=== PATIENT | male | born 1930 | race Caucasian/White ===

== ENCOUNTER → 2018-11-20 | Outpatient (CLI) | payer MEDICARE | LOC: RAD 11:31 | DX: R60.9 Edema, unspecified (principal) | CPT/HCPCS: 93971 ==

== ENCOUNTER → 2020-03-23 | Day surgery (SDC) | payer MEDICARE, OTHER ==
[2020-03-19 12:42] LABS: BASOPHILS % 0.4 % (0.0-1.0); HEMATOCRIT 44.2 % (38.2-49.6); HEMOGLOBIN 13.7 g/dL (14.0-18.0); LYMPHOCYTES # (AUTO) 1.7 (1.0-3.2); LYMPHOCYTES % 31.9 % (18.0-39.1); MEAN CORPUSCULAR VOLUME 90.4 fL (81-99); MONOCYTES # (AUTO) 1.3 (0.2-0.8); MONOCYTES % 23.7 % (4.4-11.3); NEUTROPHILS # (AUTO) 2.2 (2.1-6.9); NEUTROPHILS % 42.3 % (38.7-80.0); PLATELET COUNT 132 x10e3/uL (140-360); RED BLOOD COUNT 4.89 x10e6/uL (4.3-5.7)
[~2020-03-23] MED LIST: CENTRUM ADULTS1 EACH; LEVOTHYROXINE100 MCG; LIDOCAINE HCL 2% LOCAL INJ 5 ML SDV VIAL INJ ONE; PANTOPRAZOLE 40 MG 10ML VIAL ONE; PROPOFOL IV EMULSION 10 MG/ML 20 ML VIAL ONE; SODIUM CHLORIDE 0.9% 50ML 50 ML ONE; SUPER B WITH V1 EACH
[2020-03-23 08:50] VITALS: BP 133/79
--- NOTE | 2020-03-23 08:58 | Operative Report ---
DATE OF PROCEDURE: 03/23/2020 SURGEON: Fredis James MD PROCEDURE: EGD with esophageal dilatation over a wire and biopsies. INDICATIONS FOR EGD: Dysphagia to solids. MEDICATIONS: The patient was done under MAC, please see anesthesiologist's note. PROCEDURE IN DETAIL: With the patient in the left lateral decubitus position, a flexible fiberoptic Olympus gastroscope was introduced into the oropharynx under direct visualization and with gentle persistent pressure, we were able to advance the scope into the cervical esophagus. No discernible obvious stricture was noted. The mucosa overlying the distal esophagus revealed some patchy areas of erythema. There was some prominent esophageal veins versus grade 1 esophageal varices were noted. An approximately 5 mm sessile lesion, distal esophagus was biopsied. There was some minute tongues of velvety red mucosa were noted to extend proximally from the GE junction and biopsies were obtained to rule out Escobar. The scope was then advanced with ease into the stomach traversing a small sliding hiatal hernia. Mucosa overlying the antrum and the body revealed some patchy erythema and low-grade edema, and biopsies were obtained and sent to stain for H. pylori. Pylorus was of normal contour and shape, was intubated with ease and the scope was advanced all the way to the second portion of the duodenum. A small periampullary diverticulum was noted. The duodenal bulb appeared to be grossly within normal limits. The scope was then withdrawn back into the stomach and retroflexed, and previously described hiatal hernia was also noted in the retroflexed position. The fundus appeared to be within normal limits. The stricture? involving the upper esophageal sphincter was then dilated to size 17 Savary over a wire. The scope was subsequently withdrawn and the patient tolerated the procedure well. IMPRESSION: 1. 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 2. Prominent esophageal veins? grade 1 esophageal varices. We will check hepatic panel. 3. Distal esophagitis, mild. 4. Approximately 5 mm sessile lesion, distal esophagus, biopsied. 5. Rule out Escobar esophagus. 6. Small sliding hiatal hernia. 7. Gastritis, biopsied, biopsies sent to stain for Helicobacter pylori. 8. Small periampullary diverticulum. PLAN: Follow up histology. Initiate Protonix 40 mg one p.o. q.a.m. before meals. Check hepatic panel. If dysphagia persists, we will need a CT scan of the neck and possibly a modified barium swallow. Fredis James MD [facility] – [place] /[id number] cc: Adalid James MD
== END | disposition home or self-care (01) ==
LOC: ENDO 06:00
PROVIDERS: ATTEND Internal Medicine Gastroenterology
DX: K21.00 Gastro-esophageal reflux disease with esophagitis, without bleeding (principal); K29.70 Gastritis, unspecified, without bleeding; K22.8 Other specified diseases of esophagus; K44.9 Diaphragmatic hernia without obstruction or gangrene; K57.10 Diverticulosis of small intestine without perforation or abscess without bleeding; K59.09 Other constipation; I10 Essential (primary) hypertension; Z01.810 Encounter for preprocedural cardiovascular examination; Z01.812 Encounter for preprocedural laboratory examination; Z11.59 Encounter for screening for other viral diseases; Z68.30 Body mass index [BMI] 30.0-30.9, adult
CPT/HCPCS: 36415; 43239; 43248; 85025; 88305; 88312; 93005; C9113; J2001; J2704; U0002; 43450

== ENCOUNTER → 2020-03-27 | Outpatient (CLI) | payer MEDICARE, OTHER ==
[~2020-03-27] MED LIST changes: -LIDOCAINE HCL 2% LOCAL INJ 5 ML SDV VIAL INJ ONE; -PANTOPRAZOLE 40 MG 10ML VIAL ONE; -PROPOFOL IV EMULSION 10 MG/ML 20 ML VIAL ONE; -SODIUM CHLORIDE 0.9% 50ML 50 ML ONE
== END | disposition home or self-care (01) ==
LOC: RAD 10:48
DX: R60.0 Localized edema (principal); M79.606 Pain in leg, unspecified
CPT/HCPCS: 93970

== ENCOUNTER → 2020-04-29 | Day surgery (SDC) | payer MEDICARE ==
[2020-04-27 13:51] LABS: BASOPHILS % 0.4 % (0.0-1.0); EOSINOPHILS % 0.2 % (0.0-6.0); HEMATOCRIT 42.2 % (38.2-49.6); HEMOGLOBIN 13.3 g/dL (14.0-18.0); LYMPHOCYTES # (AUTO) 2.1 (1.0-3.2); LYMPHOCYTES % 39.4 % (18.0-39.1); MEAN CORPUSCULAR HEMOGLOBIN 27.7 pg (28-32); MEAN CORPUSCULAR HGB CONC 31.5 g/dL (31-35); MEAN CORPUSCULAR VOLUME 87.7 fL (81-99); MONOCYTES # (AUTO) 1.1 (0.2-0.8); MONOCYTES % 19.9 % (4.4-11.3); NEUTROPHILS # (AUTO) 2.1 (2.1-6.9); NEUTROPHILS % 37.9 % (38.7-80.0); PLATELET COUNT 158 x10e3/uL (140-360); RED BLOOD COUNT 4.81 x10e6/uL (4.3-5.7); RED CELL DISTRIBUTION WIDTH 14.2 % (11.7-14.4)
--- NOTE | 2020-04-27 14:34 | Diagnostic Imaging Report ---
EXAMINATION: CHEST 2 VIEWS INDICATION: Pre-operative COMPARISON: None FINDINGS: LINES/TUBES:None LUNGS:The lungs are well-inflated. No focal consolidation or pulmonary edema. PLEURA:No pleural effusion or pneumothorax. MEDIASTINUM:The cardiomediastinal silhouette appears normal in size and shape. BONES/SOFT TISSUES:No acute osseous injury. ABDOMEN:No free air under the diaphragm. IMPRESSION: No focal pneumonia or pulmonary edema. Signed by: Aydee Gurrola MD on 04/27/2020 2:31 PM
[~2020-04-29] MED LIST changes: +ACETAMINOPHEN 1000 MG/100 ML 100 ML IV ONE; +ACETAMINOPHEN/CODEINE 300MG - 30MG TAB ONE; +BUPIVACAINE HCL 0.5% INJ 30 ML VIAL INJ ONE; +CEFAZOLIN SOD 1 GM/NS 50ML 100 ML IV ONE; +DESFLURANE 240 ML BTL INH ONE; +DEXAMETHASONE SOD PHOS INJ 4 MG/ML VIAL ONE; +FENTANYL CITRATE/PF 100MCG/2 ML INJ ONE; +ONDANSETRON HCL INJ 2MG/ML 2ML 2 MG/ML VIAL ONE; +PROPOFOL IV EMULSION 10 MG/ML 20 ML VIAL ONE
[2020-04-29 14:35] VITALS: BP 139/84
--- NOTE | 2020-05-05 19:18 | Operative Report ---
DATE OF PROCEDURE: 04/29/2020 SURGEON: Shon Reynolds MD PREOPERATIVE DIAGNOSIS: Right cubital tunnel syndrome. POSTOPERATIVE DIAGNOSIS: Right cubital tunnel syndrome. OPERATION AND PROCEDURE PERFORMED: 1. The patient underwent a right ulnar nerve decompression. 2. Anterior transposition of the right ulnar nerve. [employer] DEVELOPER: There was no client services assistant. ANESTHESIA: General endotracheal intubation anesthesia. IV FLUIDS: Per the anesthesia record. BRIEF DESCRIPTION OF THE PATIENT'S OPERATIVE PROCEDURE: Mr. Lawrence was taken to the operating room and placed in the supine position on the operating room table. Following the induction of general anesthesia as well as endotracheal intubation, the patient was turned into a lateral position with the right side up. He was held in place with a well-padded hutton bag. His bilateral lower extremities were also well padded at this time. An axillary roll was placed in the left chest wall. Examination of the right upper extremity demonstrated no gross abnormalities. The patient's upper extremity was prepped and draped in standard surgical fashion. The case was begun by creating incision over the central and medial aspects of the arm and forearm. This incision was carried through the skin only. Blunt dissection was used to deepen the incision to the level of the triceps fascia proximally. The dissection was carried medially and the ulnar nerve was identified. Careful dissection was carried both proximally and distally exposing the ulnar nerve in its entirety. There were multiple fascial bands strangulating the ulnar nerve, particularly at its entrance into the cubital tunnel posterior to the medial epicondyle. These fascial bands were taken down and the cubital tunnel was opened. The dissection was carried to the arborization of the ulnar nerve and the forearm musculature. The nerve was mobilized medially and anteriorly. The dissection was carried proximally to the entrance of the ulnar nerve into the posterior compartment. This foramen was also opened at this time. The nerve was transposed anterior to the medial epicondyle. A fascial sleeve was carefully created to prevent the nerve from translating posterior to the medial epicondyle. The wound was then copiously irrigated. A multilayer closure was achieved. Sterile dressings were applied as well as a well-padded posterior splint. The patient was then awakened and taken to the postanesthesia care unit in stable condition. MD PAZ Smith/CAROLEE /[id number]
== END | disposition home or self-care (01) ==
LOC: OR 06:40
PROVIDERS: ATTEND Specialist
DX: G56.21 Lesion of ulnar nerve, right upper limb (principal); Z01.812 Encounter for preprocedural laboratory examination; Z01.818 Encounter for other preprocedural examination; Z20.828 Contact with and (suspected) exposure to other viral communicable diseases
CPT/HCPCS: 36415; 64718; 71046; 85025; J0131; J0690; J1100; J2405; J2704; J3010; U0002